=== PATIENT | female | born 1950 | race Two or more races ===

== ENCOUNTER 2018-10-29 10:42 | Inpatient (IN) | payer OTHER ==
[~2018-10-29] VITALS: Ht 154.9 cm; Wt 100.7 kg
[2018-10-29] MEDS ORDERED: SODIUM CHLORIDE 0.9% 1,000 ML IV ONE (11:26)
[2018-10-29] MEDS ORDERED: ONDANSETRON HCL 4MG/2ML INJ IV STA (11:26)
[2018-10-29] MEDS ORDERED: MORPHINE SULFATE 4 MG/ML CPJ (NOT FOR IM USE) IV STA (11:26)
[2018-10-29 11:45] LABS: BASOPHILS % 1.4 % (0.0-2.0); EOSINOPHILS % 0.4 % (0.0-5.0); HEMATOCRIT. 37.7 % (36.0-48.0); HEMOGLOBIN. 12.5 g/dL (12.0-16.0); LYMPHOCYTES % 24.9 % (20.0-50.0); MEAN CORPUSCULAR HEMOGLOBIN 26.7 pg (28.0-32.0); MEAN CORPUSCULAR VOLUME 80.3 fL (81.0-99.0); MEAN PLATELET VOLUME 8.6 fl (7.4-10.4); MONOCYTES % 7.2 % (2.0-8.0); NEUTROPHILS % 66.1 % (40.0-76.0); PLATELET 282 x1000/uL (130-400); RED CELL DISTRIBUTION WIDTH 15.7 % (11.6-14.6)
[2018-10-29 11:52] LABS: CHLORIDE 110 mEq/L (98-107)
[2018-10-29 11:55] LABS: INR 1.1; PROTHROMBIN TIME 10.7 sec (9.1-11.1)
[2018-10-29] MEDS ORDERED: IOHEXOL-300 100 ML BOTTLE ONE (13:54)
[2018-10-29 15:01] LABS: CLARITY URINE CLEAR (CLEAR); COLOR URINE YELLOW (YELLOW); KETONES URINE NEGATIVE (NEGATIVE); LEUKOCYTE ESTERASE URINE NEGATIVE (NEGATIVE); NITRITE URINE NEGATIVE (NEGATIVE); OCCULT BLOOD URINE NEGATIVE (NEGATIVE); PROTEIN URINE 2+ (NEGATIVE); SPECIFIC GRAVITY URINE 1.054 (1.005-1.030); UROBILINOGEN URINE 0.2 E.U./dL (0.2-1.0)
[2018-10-29 21:40] VITALS: BP 136/76
[2018-10-29] MEDS ORDERED: ONDANSETRON HCL 4MG/2ML INJ IV PRN (21:45)
[2018-10-29] MEDS ORDERED: DEXTROSE 50% WATER 50ML SYRINGE IV PRN ×2 (21:45)
[2018-10-29] MEDS ORDERED: DOCUSATE SODIUM 100MG CAPSULE PO PRN (21:45)
[2018-10-29] MEDS ORDERED: SODIUM CHLORIDE 0.9% 1,000 ML IV SCH (22:30)
[2018-10-29] MEDS ORDERED: ProAir HFA INH (22:44)
[2018-10-29] MEDS ORDERED: ALENDRONATE PO (22:44)
[2018-10-29] MEDS ORDERED: SUVO5TAB MT (22:44)
[2018-10-29] MEDS ORDERED: GABA-533 MT (22:44)
[2018-10-29] MEDS ORDERED: ACET-2178 MT (22:44)
[2018-10-29] MEDS ORDERED: OMEG-95 MT (22:44)
[2018-10-29] MEDS ORDERED: FAMO20TA8 MT (22:44)
[2018-10-29] MEDS ORDERED: SULFAMETHOXAZOLE PO (22:44)
[2018-10-29] MEDS ORDERED: PREG75CA MT (22:44)
[2018-10-29] MEDS ORDERED: ASPI-1159 MT (22:44)
[2018-10-29] MEDS ORDERED: LOSA100T14 MT (22:44)
[2018-10-29] MEDS ORDERED: LIRA0.6P2 SQ (22:44)
[2018-10-30] MEDS: METOCLOPRAMIDE HCL 10MG/2ML VIAL IV SCH ×6 (00:02→23:15)
[2018-10-30] MEDS: PANTOPRAZOLE SODIUM 40 MG/VIAL IV SCH ×2 (00:02→08:50)
[2018-10-30 00:30] VITALS: BP 118/58
[2018-10-30 04:00] VITALS: BP 123/63
[2018-10-30] MEDS: BLOOD SUGAR DIAGNOSTIC STRIP TEST SCH ×4 (06:26→21:07)
[2018-10-30 07:11] LABS: BASOPHILS % 0.3 % (0.0-2.0); EOSINOPHILS % 0.5 % (0.0-5.0); HEMATOCRIT. 33.9 % (36.0-48.0); HEMOGLOBIN. 11.2 g/dL (12.0-16.0); LYMPHOCYTES % 29.4 % (20.0-50.0); MEAN CORPUSCULAR HEMOGLOBIN 26.8 pg (28.0-32.0); MEAN CORPUSCULAR VOLUME 81.2 fL (81.0-99.0); MEAN PLATELET VOLUME 8.7 fl (7.4-10.4); MONOCYTES % 8.1 % (2.0-8.0); NEUTROPHILS % 61.7 % (40.0-76.0); PLATELET 247 x1000/uL (130-400); RED BLOOD CELL COUNT 4.17 mill/uL (4.2-5.4); RED CELL DISTRIBUTION WIDTH 15.7 % (11.6-14.6)
[2018-10-30 07:42] LABS: PHOSPHORUS 3.4 mg/dL (2.5-4.9)
[2018-10-30] MEDS: INSULIN LISPRO 100 UNITS/ML SUBCUT SCH ×4 (07:50→21:00)
[2018-10-30] MEDS: MAGNESIUM/ALUMINUM HYDROXIDE/SIMETHICONE 30ML UDC PO PRN ×2 (11:20→21:52)
[2018-10-30] MEDS ORDERED: SUCRALFATE 1 G/10 ML UDC PO SCH (12:00)
[2018-10-30 13:00] VITALS: BP 151/85
[2018-10-30] MEDS: MORPHINE SULFATE 4 MG/ML CPJ (NOT FOR IM USE) IV PRN (13:38)
[2018-10-30] MEDS: DEXT 5%/0.9% NACL 1,000 ML IV SCH ×2 (13:39→23:16)
[2018-10-30] MEDS: SUCRALFATE 1 G/10 ML UDC PO SCH ×3 (13:39→23:15)
[2018-10-30 15:18] VITALS: BP 141/80
[2018-10-30 20:04] VITALS: BP 138/69
[2018-10-30 21:24] LABS: AMYLASE 53 IU/L (25-115)
[2018-10-31] VITALS (7 sets, daily range): BP systolic 128–164; BP diastolic 65–88
[2018-10-31] MEDS: METOCLOPRAMIDE HCL 10MG/2ML VIAL IV SCH ×4 (06:00→23:59)
[2018-10-31] MEDS: SUCRALFATE 1 G/10 ML UDC PO SCH ×4 (06:00→23:59)
[2018-10-31] MEDS: BLOOD SUGAR DIAGNOSTIC STRIP TEST SCH ×4 (06:28→20:40)
[2018-10-31] MEDS: INSULIN LISPRO 100 UNITS/ML SUBCUT SCH ×4 (06:51→20:40)
[2018-10-31 06:52] LABS: BASOPHILS % 0.6 % (0.0-2.0); HEMATOCRIT. 33.1 % (36.0-48.0); MEAN CORPUSCULAR HEMOGLOBIN 26.8 pg (28.0-32.0); MEAN CORPUSCULAR VOLUME 80.4 fL (81.0-99.0); MEAN PLATELET VOLUME 8.3 fl (7.4-10.4); MONOCYTES % 8.9 % (2.0-8.0); NEUTROPHILS % 66.5 % (40.0-76.0); PLATELET 244 x1000/uL (130-400); RED BLOOD CELL COUNT 4.11 mill/uL (4.2-5.4); RED CELL DISTRIBUTION WIDTH 15.9 % (11.6-14.6)
[2018-10-31] MEDS: PANTOPRAZOLE SODIUM 40 MG/VIAL IV SCH (09:43)
[2018-10-31] MEDS: MAGNESIUM/ALUMINUM HYDROXIDE/SIMETHICONE 30ML UDC PO PRN ×2 (09:43→20:48)
[2018-10-31] MEDS ORDERED: KCL 20MEQ/100ML PREMIX 100 ML IV NR (10:30)
[2018-10-31] MEDS ORDERED: PREGABALIN 75MG CAPSULE PO SCH (12:00)
[2018-10-31] MEDS: DEXT 5%/0.9% NACL 1,000 ML IV SCH (13:39)
[2018-10-31 13:46] LABS: CLARITY URINE CLEAR (CLEAR); COLOR URINE YELLOW (YELLOW); KETONES URINE NEGATIVE (NEGATIVE); LEUKOCYTE ESTERASE URINE NEGATIVE (NEGATIVE); NITRITE URINE NEGATIVE (NEGATIVE); OCCULT BLOOD URINE NEGATIVE (NEGATIVE); PROTEIN URINE 2+ (NEGATIVE); SPECIFIC GRAVITY URINE 1.014 (1.005-1.030); UROBILINOGEN URINE 0.2 E.U./dL (0.2-1.0)
[2018-10-31] MEDS ORDERED: PANTOPRAZOLE SODIUM 40 MG/VIAL IV SCH (14:45)
[2018-10-31] MEDS ORDERED: ACETAMINOPHEN 650MG SUPP PR PRN (14:45)
[2018-10-31] MEDS ORDERED: DIPHENHYDRAMINE 50MG/ML VIAL IV PRN (14:45)
[2018-10-31] MEDS ORDERED: ACETAMINOPHEN 325MG TABLET PO PRN (14:45)
[2018-10-31] MEDS ORDERED: HYDRALAZINE 20MG/ML VIAL IV PRN (14:45)
[2018-11-01 00:18] VITALS: BP 140/78
[2018-11-01] MEDS: MORPHINE SULFATE 4 MG/ML CPJ (NOT FOR IM USE) IV PRN ×5 (00:48→17:53)
[2018-11-01] MEDS: MAGNESIUM/ALUMINUM HYDROXIDE/SIMETHICONE 30ML UDC PO PRN ×3 (00:48→21:39)
[2018-11-01] MEDS: DEXT 5%/0.9% NACL 1,000 ML IV SCH ×2 (02:31→15:10)
[2018-11-01 04:06] VITALS: BP 115/58
[2018-11-01] MEDS: SUCRALFATE 1 G/10 ML UDC PO SCH ×4 (05:47→23:35)
[2018-11-01] MEDS: METOCLOPRAMIDE HCL 10MG/2ML VIAL IV SCH ×3 (06:32→17:42)
[2018-11-01] MEDS: BLOOD SUGAR DIAGNOSTIC STRIP TEST SCH ×4 (06:32→21:33)
[2018-11-01 06:33] LABS: HEMATOCRIT 30.2 % (36.0-48.0); HEMOGLOBIN 10.1 g/dL (12.0-16.0); MEAN CORPUSCULAR HEMOGLOBIN 26.9 pg (28.0-32.0); MEAN CORPUSCULAR VOLUME 80.6 fL (81.0-99.0); PLATELET 239 x1000/uL (130-400); RED BLOOD CELL COUNT 3.75 mill/uL (4.2-5.4); RED CELL DISTRIBUTION WIDTH 15.7 % (11.6-14.6)
[2018-11-01 06:54] LABS: T4 FREE 1.28 ng/dL (0.76-1.46)
[2018-11-01] MEDS: INSULIN LISPRO 100 UNITS/ML SUBCUT SCH ×4 (07:50→21:00)
[2018-11-01 08:00] VITALS: BP 141/72
[2018-11-01 08:36] VITALS: BP 141/72
[2018-11-01] MEDS: PANTOPRAZOLE SODIUM 40 MG/VIAL IV SCH (08:48)
[2018-11-01] MEDS: PREGABALIN 75MG CAPSULE PO SCH (08:49)
[2018-11-01] MEDS ORDERED: FENTANYL CITRATE/PF 50MCG/ML 2ML VIAL IV ONE (10:59)
[2018-11-01] MEDS ORDERED: MIDAZOLAM HCL 5 MG/5 ML VIAL IV ONE (11:00)
[2018-11-01] MEDS ORDERED: SIMETHICONE 40 MG/0.6 ML 30ML ONE ×2 (11:04→14:39)
[2018-11-01] MEDS ORDERED: FENTANYL CITRATE/PF 50MCG/ML 2ML VIAL ONE (11:04)
[2018-11-01] MEDS ORDERED: MIDAZOLAM HCL 5 MG/5 ML VIAL ONE (11:04)
[2018-11-01] MEDS ORDERED: POTASSIUM CHLORIDE INJ 40 MEQ in DEXT 5% WATER 250 ML IV NR (11:30)
[2018-11-01] MEDS ORDERED: BACTERIOSTATIC SODIUM CHLORIDE 0.9% 30ML VIAL IJ ONE (14:39)
[2018-11-01 16:36] VITALS: BP 124/72
[2018-11-01 20:00] VITALS: BP 132/79
[2018-11-02] VITALS (7 sets, daily range): BP systolic 119–148; BP diastolic 65–79
[2018-11-02] MEDS: METOCLOPRAMIDE HCL 10MG/2ML VIAL IV SCH ×4 (00:36→17:15)
[2018-11-02] MEDS: MAGNESIUM/ALUMINUM HYDROXIDE/SIMETHICONE 30ML UDC PO PRN ×2 (05:06→20:10)
[2018-11-02] MEDS: SUCRALFATE 1 G/10 ML UDC PO SCH ×4 (06:00→17:15)
[2018-11-02] MEDS: BLOOD SUGAR DIAGNOSTIC STRIP TEST SCH ×3 (06:33→16:23)
[2018-11-02] MEDS: MORPHINE SULFATE 4 MG/ML CPJ (NOT FOR IM USE) IV PRN (06:34)
[2018-11-02] MEDS: INSULIN LISPRO 100 UNITS/ML SUBCUT SCH ×3 (07:50→16:51)
[2018-11-02 08:10] LABS: HEMATOCRIT. 31.3 % (36.0-48.0); HEMOGLOBIN. 10.5 g/dL (12.0-16.0); MEAN CORPUSCULAR HEMOGLOBIN 26.9 pg (28.0-32.0); MEAN CORPUSCULAR VOLUME 80.3 fL (81.0-99.0); PLATELET 237 x1000/uL (130-400); RED BLOOD CELL COUNT 3.89 mill/uL (4.2-5.4); RED CELL DISTRIBUTION WIDTH 15.7 % (11.6-14.6)
[2018-11-02] MEDS: PANTOPRAZOLE SODIUM 40 MG/VIAL IV SCH (08:37)
[2018-11-02] MEDS: PREGABALIN 75MG CAPSULE PO SCH (08:39)
[2018-11-02 10:17] LABS: FERRITIN 28 ng/mL (10-291)
[2018-11-02 11:36] LABS: VITAMIN B12 SERUM > 2000.0 pg/mL (211-911)
[2018-11-02 16:36] LABS: PLATELET ESTIMATE NORMAL
== END 2018-11-02 20:25 | disposition home or self-care (01) | DRG 682 ==
LOC: ER 11:32 → 6WST 14:42 → ENRESERV 20:53
PROVIDERS: ADMIT Internal Medicine; ATTEND Internal Medicine
PROC: 0DB68ZX Excision of Stomach, Via Natural or Artificial Opening Endoscopic, Diagnostic (ICD-10-PCS; principal; 2018-11-01)
DX: N17.9 Acute kidney failure, unspecified (principal); I50.33 Acute on chronic diastolic (congestive) heart failure; Z68.41 Body mass index [BMI] 40.0-44.9, adult; K52.9 Noninfective gastroenteritis and colitis, unspecified; K57.90 Diverticulosis of intestine, part unspecified, without perforation or abscess without bleeding; E66.9 Obesity, unspecified; I11.0 Hypertensive heart disease with heart failure; E78.5 Hyperlipidemia, unspecified; E87.6 Hypokalemia; E11.9 Type 2 diabetes mellitus without complications; I48.91 Unspecified atrial fibrillation; K29.70 Gastritis, unspecified, without bleeding; E78.00 Pure hypercholesterolemia, unspecified; I25.10 Atherosclerotic heart disease of native coronary artery without angina pectoris; I71.2 Thoracic aortic aneurysm, without rupture; I34.0 Nonrheumatic mitral (valve) insufficiency; R59.9 Enlarged lymph nodes, unspecified; E86.0 Dehydration; I25.2 Old myocardial infarction; Z85.3 Personal history of malignant neoplasm of breast; Z92.3 Personal history of irradiation; Z79.01 Long term (current) use of anticoagulants; Z90.710 Acquired absence of both cervix and uterus; Z88.0 Allergy status to penicillin; Z90.10 Acquired absence of unspecified breast and nipple; Z90.49 Acquired absence of other specified parts of digestive tract
CPT/HCPCS: 36415; 71045; 71250; 74177; 76700; 80048; 80061; 80076; 82150; 82270; 82607; 82728; 82746; 82962; 83036; 83540; 83550; 83605; 83615; 83735; 84100; 84132; 84439; 84443; 85007; 85027; 85044; 87015; 87045; 87427; 87449; 88305; 88312; 88313; 89055; 93005; 93306; 93970; 96374; 96375; 97162; 97165; 99291; C9113; J1815; J2250; J2270; J2405; J2765; J3010; J3480; J3490; J7030; J7042; J7060; Q9967

== ENCOUNTER 2023-05-18 06:56 | Emergency (ER) | payer OTHER ==
[~2023-05-18] VITALS: Ht 154.9 cm; Wt 113.0 kg
[~2023-05-18 06:56] MED LIST: ALENDRONATE PO; ASPI-1497 MT; FAMO20TA8 MT; GABA-534 MT; LIRA0.6P2 SQ; LOSA100T33 MT; OMEG-95 MT; PREG75CA MT; ProAir HFA INH; SULFAMETHOXAZOLE PO; SUVO5TAB MT; TOPUD MT
[2023-05-18 07:03] VITALS: O2SAT 95
[2023-05-18] MEDS ORDERED: MORPHINE SULFATE 4 MG/ML CPJ (NOT FOR IM USE) IV ONE (07:45)
[2023-05-18] MEDS ORDERED: HYDROMORPHONE HCL/PF 2MG/ML CPJ IV ONE (07:45)
[2023-05-18] MEDS ORDERED: ONDANSETRON HCL 4MG/2ML INJ IV ONE (07:45)
[2023-05-18 11:35] VITALS: BP 146/75; PULSE 73; RESP 18; TEMP 98
== END 2023-05-18 12:02 | disposition home or self-care (01) ==
LOC: ER 06:56
DX: G89.3 Neoplasm related pain (acute) (chronic) (principal); I10 Essential (primary) hypertension; E78.00 Pure hypercholesterolemia, unspecified; E11.9 Type 2 diabetes mellitus without complications; Z88.0 Allergy status to penicillin; Z79.899 Other long term (current) drug therapy
CPT/HCPCS: 99284; 96374; 96375; J2405; J1170